=== PATIENT | female | born 1960 | race Caucasian/White ===

== ENCOUNTER 2022-11-23 17:25 | Emergency (ER) | payer MEDICAID, SELFPAY ==
[2022-11-23] VITALS (30 sets, daily range): BP systolic 107–147; BP diastolic 75–116; PULSE 90–123; RESP 12–37; O2SAT 91–97; BMI 19.2
--- NOTE | 2022-11-23 17:54 | ECG_ITS ---
The [facility] Test Date: 2022-11-23 Pat Name: Tika Crowell Department: Room: - Gender: Female Garbage Person: : 1960 Requested By: ARIA CUMMINGS Order Number: [id number] Reading MD: DIONICIO BYERS Measurements Intervals [place] Rate: 112 P: 72 SD: 142 QRS: -12 QRSD: 74 T: 76 QT: 320 QTc: 386 Interpretive Statements 1120 Sinus tachycardia 4068 Nonspecific [place] abnormality 9140 abnormal rhythm ECG No previous ECG available for comparison Electronically Signed On 11-24-2022 7:11:00 EDT by DIONICIO BYERS
--- NOTE | 2022-11-23 17:58 | ED.GENADUL1 ---
HPI - General Adult General Chief complaint: Altered Mental Status Stated complaint: ALTERED MENTAL STATUS Time Seen by Provider: 11/23/22 17:53 Source: patient Mode of arrival: ambulance History of Present Illness HPI narrative: Patient is a Very pleasant 62-year-old female who is presenting to the Emergency Room with chief complaint of confusion, disorientation, and unusual behavior at home today. Patient has history of cancer with significant metastasis. Patient came in by EMS. will be arrivingg later for additional history. Patient has been complaining of abdominal pain, patient has been sitting on the floor naked trying to either have a bowel movement or urinate throughout the day. This is not normal behavior for this patient. Patient complains of no headache. Patient is complaining of left lower quadrant abdominal pain. Patient takes multiple medications for pain secondary to cancer with metastasis, patient is involved in Palliative care. Patient does not appear to be any stool softeners. Patient denies any chest pain or shortness of breath. Patient states she has urgency. Patient feels constipated and is having pain to left lower quadrant. No other acute complaints. . All systems are negative except as noted/marked. All systems reviewed and otherwise negative. . Nurses note and vital signs reviewed and patient is not hypoxic. General: The patient appears well and in no apparent distress. Patient is resting comfortably on cart. Patient is not toxic, lethargic, or listless Skin: Warm, dry, no pallor noted. There is no rash noted. No petechiae, purpura. Head: Normocephalic, atraumatic Eye: Normal conjunctiva, no drainage, EOMI. PERRL Ears, Nose, Mouth, and Throat: oral mucosa is very dry. Nares patent. Mouth without vesicles. Cardiovascular: Regular Rate and Rhythm, no murmur, gallop, rub Respiratory: Patient is in no distress, no accessory muscle use, lungs are clear to auscultation, no wheezing, rales or rhonchi Back: non-tender, no CVA tenderness bilaterally to percussion. No CT LS midline pain GI: soft, Moderate tenderness to palpation to left lower quadrant and left upper quadrant, mild left flank pain, no pain to the right lower or right upper quadrant, no right flank pain, no peritoneal sounds, bowel sounds quiet ?4, no midepigastric tenderness to palpation, no masses appreciated. No rebound, mild LLQ guarding, NO rigidity noted. No flank pain bilateral, No distention Musculoskeletal: Patient has full range of motion of all of the extremities, no motor, sensory, or focal neurological deficits Neurological: A&O x3, normal speech Psychiatric: Cooperative Related Data Home Medications Medication Instructions Recorded Confirmed amitriptyline 25 mg tablet 25 mg PO DAILY 11/23/22 11/23/22 bupropion HCl 100 mg tablet 100 mg PO QPM 11/23/22 11/23/22 bupropion HCl 100 mg tablet,12 hr 200 mg PO QAM 11/23/22 11/23/22 sustained-release calcium carbonate 600 mg calcium 600 mg PO BID 11/23/22 11/23/22 (1,500 mg) tablet duloxetine 60 mg capsule,delayed 60 mg PO DAILY 11/23/22 11/23/22 release fentanyl 25 mcg/hr transdermal 1 patch topical Q72H 11/23/22 11/23/22 patch gabapentin 300 mg capsule 600 mg PO BID 11/23/22 11/23/22 ipratropium 0.5 mg-albuterol 3 mg 3 ml inhalation DAILY PRN 11/23/22 11/23/22 (2.5 mg base)/3 mL nebulization shortness of breath or wheezing soln morphine 15 mg tablet,extended 15 mg PO QPM 11/23/22 11/23/22 release omeprazole 40 mg capsule,delayed 40 mg PO DAILY 11/23/22 11/23/22 release oxycodone 5 mg tablet 5 mg PO Q4H PRN pain 11/23/22 11/23/22 rivaroxaban 20 mg tablet (Xarelto) 20 mg PO DAILY 11/23/22 11/23/22 Previous Rx's Medication Instructions Recorded docusate sodium 100 mg capsule 100 mg PO DAILY #20 caps 11/23/22 (Colace) Allergies Allergy/AdvReac Type Severity Reaction Status Date / Time No Known Drug Allergies Allergy Verified 11/23/22 17:18 Exam Constitutional Vital Signs, click to edit/add: Last Vital Signs Pulse 102 H 11/23/22 19:00 Resp 14 11/23/22 19:00 BP 107/81 11/23/22 19:00 Pulse Ox 91 L 11/23/22 19:00 O2 Del Method Room Air 11/23/22 17:46 Course Vital Signs Vital signs: Vital Signs Pulse Rate 118 H 11/23/22 17:12 Respiratory Rate 22 11/23/22 17:12 Blood Pressure 134/88 11/23/22 17:12 Pulse Oximetry 94 L 11/23/22 17:12 Oxygen Delivery Method Room Air 11/23/22 17:12 Pulse Rate 102 H 11/23/22 19:00 Respiratory Rate 14 11/23/22 19:00 Blood Pressure 107/81 11/23/22 19:00 Pulse Oximetry 91 L 11/23/22 19:00 Oxygen Delivery Method Room Air 11/23/22 17:46 Medical Decision Making MDM Narrative Medical decision making narrative: Patient received 1.5 L of IV fluid. Patient had a large hard bowel movement on her own. Patient was also given a soapsuds enema where she had moderate relief of stool. See nursing notes. Patient feels significantly better. Patient has no pain at discharge. Patient has no tenderness to palpation to the left upper quadrant and left lower quadrant, bowel sounds are still quiet but more active than they were when she initially arrived. Patient feels better, would like to go home. has been at bedside. Patient isn't rolled and out of care. They are starting to consider and will be talking to hospice. Patient's sister is a nurse and is been helping family guide care for the patient. Patient is on pain medication, patient does not appear to be on any stool softeners. Patient was prescribed Colace and patient and were educated that taking the amount of pain medication she has, secondary side effect very well could be constipation in the future as well. Patient feels better, will be discharged. CT of the brain shows no acute abnormalities. Abdominal x-ray shows multiple pulmonary nodules, and patient is aware of lung cancer bilateral. Patient also has multiple spots on her bones, and patient are aware of that as well. Medical Records Medical records reviewed: Yes I reviewed the patient's medical records Lab Data Lab results reviewed: Yes I reviewed the patient's lab results Labs: Lab Results 11/23/22 11/23/22 Range/Units 17:40 18:45 WBC 6.9 (4.0-11.0) 10^3/uL RBC 4.95 (4.20-5.40) 10^6/uL Hgb 16.2 H (12.0-16.0) g/dL Hct 45.9 (36.0-48.0) % MCV 92.7 (81.0-99.0) fL MCH 32.7 (26.7-34.0) pg MCHC 35.3 H (29.9-35.2) g/dL RDW 15.0 (11.0-15.0) % Plt Count 244 (150-450) 10^3/uL MPV 9.2 L (9.5-13.5) fL Neut % (Auto) 74.2 (43.0-75.0) % Lymph % (Auto) 15.7 L (20.5-60.0) % Humphreys % (Auto) 8.7 (1.7-12.0) % Eos % (Auto) 0.7 L (0.9-7.0) % Baso % (Auto) 0.3 (0.2-2.0) % Neut # (Auto) 5.1 (1.4-6.5) 10^3/uL Lymph # (Auto) 1.1 L (1.2-3.8) 10^3/uL Humphreys # (Auto) 0.6 (0.3-0.8) 10^3/uL Eos # (Auto) 0.1 (0.0-0.7) 10^3/uL Baso # (Auto) 0.0 (0.0-0.1) 10^3/uL Abs Immat Gran (auto) 0.03 (0.00-0.03) 10^3/uL Imm/Tot Granulo (auto) 0.4 (0.0-0.5) % VBG pH 7.432 H (7.330-7.430) VBG pCO2 37.0 L (40.0-52.0) mmHg Sodium 133 L (136-145) mmol/L Potassium 3.5 (3.5-5.1) mmol/L Chloride 97 L (98-107) mmol/L Carbon Dioxide 24.2 (21.0-32.0) mmol/L Anion Gap 15.3 BUN 13.0 (7.0-18.0) mg/dL Creatinine 0.85 (0.55-1.02) mg/dL Est GFR ( Amer) >60 (>=60) Est GFR (Non-Af Amer) >60 (>=60) BUN/Creatinine Ratio 15.3 Glucose 173 H (74-106) mg/dL Lactate 2.9 H* (0.4-2.0) mmol/L Calcium 9.9 (8.5-10.1) mg/dL Magnesium 1.9 (1.8-2.4) mg/dL Total Bilirubin 0.5 (0.2-1.0) mg/dL AST 17 (15-37) U/L ALT 16 (14-59) U/L Alkaline Phosphatase 69 (46-116) U/L Ammonia 23 (11-32) umol/L Troponin I High Sens 4.6 (4.0-51.3) pg/mL Total Protein 8.2 (6.4-8.2) g/dL Albumin 3.3 L (3.4-5.0) g/dL Globulin 4.9 g/dL Albumin/Globulin Ratio 0.7 Patient's lactate was elevated, patient received 1.5 L of IV fluid. ECG Data Attestation: I personally reviewed and interpreted this ECG as follows: Interpretation: EKG interpretation. Sinus tachycardia at 112, normal axis deviation. No acute ST elevation, no acute ectopy. QTC of 386. Discharge Plan Discharge Chief Complaint: Altered Mental Status Clinical Impression: Metastasis, Dehydration, mild, Abdominal pain, Constipation Patient Disposition: Home, Self-Care Condition: Good Prescriptions / Home Meds: New docusate sodium [Colace] 100 mg capsule 100 mg PO DAILY Qty: 20 0RF No Action bupropion HCl 100 mg tablet sustained-release 12 hr 200 mg PO QAM bupropion HCl 100 mg tablet 100 mg PO QPM calcium carbonate 600 mg calcium (1,500 mg) tablet 600 mg PO BID duloxetine 60 mg capsule,delayed release(DR/EC) 60 mg PO DAILY fentanyl 25 mcg/hr patch 72 hour 1 patch topical Q72H gabapentin 300 mg capsule 600 mg PO BID ipratropium-albuterol 0.5 mg-3 mg(2.5 mg base)/3 mL solution for nebulization 3 ml INHALATION DAILY PRN (Reason: shortness of breath or wheezing) morphine 15 mg tablet extended release 15 mg PO QPM omeprazole 40 mg capsule,delayed release(DR/EC) 40 mg PO DAILY amitriptyline 25 mg tablet 25 mg PO DAILY oxycodone 5 mg tablet 5 mg PO Q4H PRN (Reason: pain) Xarelto 20 mg tablet 20 mg PO DAILY Instructions: Constipation (ED), Dehydration (ED), Abdominal Pain (ED), Obstipation (ED) Additional Instructions: Pain medication/narcotics will cause constipation. Continue to increase liquids at home. Colace has been prescribed to help as a stool softener to help avoid constipation at home. Continue to follow up with Palliative care Stand Alone Forms: Portal Instructions Referrals: ARIA CUMMINGS [Primary Care Provider] - 1 week
[2022-11-23 18:07] LABS: Basophils Percent Auto 0.3 % (0.2-2.0); Eosinophils Absolute Auto 0.1 10^3/uL (0.0-0.7); Eosinophils Percent Auto 0.7 % (0.9-7.0); Hematocrit 45.9 % (36.0-48.0); Hemoglobin 16.2 g/dL (12.0-16.0); Immature Granulocytes Abs Auto 0.03 10^3/uL (0.00-0.03); Immature Granulocytes Pct Auto 0.4 % (0.0-0.5); Lymphocytes Absolute Auto 1.1 10^3/uL (1.2-3.8); Lymphocytes Percent Auto 15.7 % (20.5-60.0); Mean Corpuscular HGB Conc 35.3 g/dL (29.9-35.2); Mean Corpuscular Hemoglobin 32.7 pg (26.7-34.0); Mean Corpuscular Volume 92.7 fL (81.0-99.0); Mean Platelet Volume 9.2 fL (9.5-13.5); Monocytes Absolute Auto 0.6 10^3/uL (0.3-0.8); Monocytes Percent Auto 8.7 % (1.7-12.0); Neutrophils Absolute Auto 5.1 10^3/uL (1.4-6.5); Neutrophils Percent Auto 74.2 % (43.0-75.0); Platelet Count 244 10^3/uL (150-450); Red Blood Count 4.95 10^6/uL (4.20-5.40); White Blood Count 6.9 10^3/uL (4.0-11.0)
[2022-11-23 18:17] LABS: Alanine Aminotransferase 16 U/L (14-59); Albumin Globulin Ratio 0.7; Albumin Level 3.3 g/dL (3.4-5.0); Alkaline Phosphatase 69 U/L (46-116); Anion Gap 15.3; Aspartate Amino Transferase 17 U/L (15-37); BUN Creatinine Ratio 15.3; Bilirubin Total 0.5 mg/dL (0.2-1.0); Calcium 9.9 mg/dL (8.5-10.1); Carbon Dioxide 24.2 mmol/L (21.0-32.0); Chloride 97 mmol/L (98-107); Estimated GFR (African America >60 (>=60); Estimated GFR (Non-African Ame >60 (>=60); Globulin 4.9 g/dL; Glucose 173 mg/dL (74-106); Magnesium 1.9 mg/dL (1.8-2.4); Potassium 3.5 mmol/L (3.5-5.1); Sodium 133 mmol/L (136-145); Total Protein 8.2 g/dL (6.4-8.2)
[2022-11-23 18:19] LABS: Troponin I High Sensitivity 4.6 pg/mL (4.0-51.3)
[2022-11-23 18:20] LABS: Lactate/Lactic Acid 2.9 mmol/L (0.4-2.0)
[2022-11-23] MEDS: 0.9 % SODIUM CHLORIDE 1,000 ML 999 ML IV (18:21)
[2022-11-23] MEDS: ONDANSETRON 4 MG RAPDIS TABLET SL (18:21)
[2022-11-23] MEDS: HYDROMORPHONE HCL 0.5 MG/0.5 ML SYRINGE IV (18:21)
--- NOTE | 2022-11-23 18:41 | XR_ITS ---
The [address] [address] Patient Name: NARCISO RIVERA MRN: [id number] date: 1960 Sex: F Assigned Patient Location: ER Current Patient Location: ER Accession/Order Number: [id number] Exam Date: 11/23/2022 18:24 Report Date: 11/23/2022 19:13 At the request of: ALBIN CALLOWAY Procedure: XR acute abdomen series EXAM: XR acute abdomen series HISTORY: constip COMPARISON: Acute abdominal series dated 08/28/2019.. TECHNIQUE: Single frontal view of the chest as well as upright and supine views of the abdomen are submitted for review. FINDINGS: The heart size is normal. Multiple lung nodules are again seen, suspicious for pulmonary metastasis. Patchy opacity is also seen in the right midlung field, which may represent interstitial changes and/or infiltrate. No significant pleural effusion or pneumothorax is seen. Nonspecific bowel gas pattern is seen. No air-filled distended loops of bowel is seen to suggest bowel obstruction. No gross pneumoperitoneum is seen. Large volume of stool is seen in the colon. No definite pathologic calcification is seen. Multiple sclerotic changes are seen throughout the osseous structures, suspicious for osseous metastases. XR/XR acute abdomen series IMPRESSION: Multiple lung nodules are again seen, suspicious for pulmonary metastasis. Patchy opacity is also seen in the right midlung field, which may represent interstitial changes and/or infiltrate. Multiple sclerotic changes are seen throughout the osseous structures, suspicious for osseous metastases. Large volume of stool seen in the colon. Electronically authenticated by: PERCY UGARTE Date: 11/23/2022 19:13
--- NOTE | 2022-11-23 18:41 | CT_ITS ---
The [address] [address] Patient Name: NARCISO RIVERA MRN: [id number] date: 1960 Sex: F Assigned Patient Location: ER Current Patient Location: ER Accession/Order Number: [id number] Exam Date: 11/23/2022 18:24 Report Date: 11/23/2022 19:11 At the request of: ALBIN CALLOWAY Procedure: CT head/brain wo con EXAMINATION: CT head/brain wo con, 11/23/2022 6:24 PM EDT HISTORY: Change of mental status COMPARISON: None. TECHNIQUE: CT scan of the head was performed without IV contrast. CT dose reduction technique was used, including Automated Exposure Control. FINDINGS: BRAIN PARENCHYMA/CSF SPACES: Ventricles are normal in size for age. There is no hemorrhage, mass effect or midline shift. Severe low attenuation in the white matter consistent with chronic microvascular ischemia. PARANASAL SINUSES: Clear. SKULL BASE AND CALVARIUM: Normal. EXTRACRANIAL SOFT TISSUES: Normal. CT/CT head/brain wo con IMPRESSION: No acute intracranial findings. MRI would be more sensitive for acute infarct if clinically indicated. Electronically authenticated by: MARSHALL LANDRUM Date: 11/23/2022 19:11
[2022-11-23 19:00] LABS: pH VBG 7.432 (7.330-7.430)
[2022-11-23 19:09] LABS: Ammonia 23 umol/L (11-32)
[2022-11-23] MEDS: 0.9 % SODIUM CHLORIDE 1,000 ML 500 ML IV (19:28)
== END 2022-11-23 21:08 | disposition home or self-care (01) ==
PROVIDERS: Emergency Provider Emergency Medicine; PCP Family Medicine
DX: K59.00 Constipation, unspecified (principal); R10.9 Unspecified abdominal pain; E86.0 Dehydration; C80.1 Malignant (primary) neoplasm, unspecified; C79.9 Secondary malignant neoplasm of unspecified site; Z79.899 Other long term (current) drug therapy
CPT/HCPCS: 36415; 70450; 74022; 80053; 82140; 82800; 83605; 83735; 84484; 85025; 93005; 96361; 96374; 99285; J1170